=== PATIENT | female | born 1955 | race Caucasian/White ===

== ENCOUNTER → 2019-08-05 07:13 | Outpatient (CLI) | payer MEDICARE, OTHER, SELFPAY ==
[2019-08-05 07:49] LABS: Add Manual Diff / Slide Review NO; Basophils Absolute Auto 100 /uL (0-100); Basophils Percent Auto 0.8 % (0-2); Eosinophils Absolute Auto 100 /uL (0-450); Eosinophils Percent Auto 1.9 % (2-4); Hematocrit 40.2 % (36-46); Hemoglobin 13.8 g/dL (12.0-16.0); Lymphocytes Absolute Auto 2300 /uL (1100-4500); Lymphocytes Percent Auto 36.1 % (25-40); Mean Corpuscular HGB Conc 34.4 % (30-36); Mean Corpuscular Hemoglobin 30.7 PG (26-34); Mean Corpuscular Volume 89.3 fL (80-100); Monocytes Absolute Auto 600 /uL (0-900); Monocytes Percent Auto 9.1 % (3-14); Neutrophils Absolute Auto 3400 /uL (1500-7000); Neutrophils Percent Auto 52.1 % (50-75); Platelet Count 256 X10^3/uL (150-400); Red Cell Distribution Width 13.1 % (11.6-14.8); White Blood Cell Count 6.5 X10^3/uL (4.5-11.0)
[2019-08-05 08:13] LABS: Alanine Aminotransferase 19 IU/L (<35); Albumin 4.4 g/dL (3.5-5.0); Albumin Globulin Ratio 1.3 (1.0-2.8); Alkaline Phosphatase 92 U/L (38-126); Aspartate Aminotransferase 28 IU/L (14-36); Bilirubin Total 0.4 mg/dL (0.2-1.3); Blood Urea Nitrogen 15 mg/dL (7-17); Calcium 9.8 mg/dL (8.4-10.2); Carbon Dioxide 29 mmol/L (22-32); Chloride 102 mmol/L (98-107); Cholesterol 161 mg/dL (140-199); Estimated Glomerular Filt Rate > 60.0 mL/min (>60); Globulin 3.4 g/dL (1.7-4.1); Glucose 102 mg/dL (80-110); HDL Cholesterol 63 mg/dL (40-60); HEMOLYSIS < 15 (0-50); LDL Cholesterol Calculated 84 mg/dL (<100); Potassium 3.7 mmol/L (3.4-5.1); Sodium 137 mmol/L (137-145); Total Protein 7.8 g/dL (6.3-8.2); Triglycerides 72 mg/dL (35-150)
[2019-08-05 09:55] LABS: TSH w/ Reflex to FT4 0.19 uIU/mL (0.47-4.68)
[2019-08-05 10:28] LABS: Free T4, Direct Thyroxine 1.28 ng/dL (0.78-2.19)
== END ==
PROVIDERS: Family Provider Orthopaedic Surgery; PCP Internal Medicine; Referring Provider Internal Medicine; Visit Provider Internal Medicine
DX: Z13.1 Encounter for screening for diabetes mellitus (principal); Z13.220 Encounter for screening for lipoid disorders; Z13.6 Encounter for screening for cardiovascular disorders; B18.2 Chronic viral hepatitis C; I10 Essential (primary) hypertension
CPT/HCPCS: 36415; 80053; 80061; 84439; 84443; 85025

== ENCOUNTER → 2020-10-18 09:30 | Outpatient (CLI) | payer MEDICARE, OTHER, SELFPAY ==
[2020-10-18 10:13] LABS: COVID19 -Nasal RAPID Negative (Negative)
== END ==
PROVIDERS: Family Provider Orthopaedic Surgery; PCP Internal Medicine; Visit Provider Surgery
DX: Z01.812 Encounter for preprocedural laboratory examination (principal); Z20.822 Contact with and (suspected) exposure to COVID-19
CPT/HCPCS: 87635; C9803

== ENCOUNTER 2020-10-19 09:44 | Day surgery (SDC) | payer MEDICARE, OTHER, SELFPAY ==
--- NOTE | 2020-10-19 | PATH_ITS ---
[facility] Accession Number: [id number] . 01 Material submitted: . rectum - RECTAL POLYPS 15 CM . 01 Clinical history: . SCREENING COLONOSCOPY . 02 Diagnosis: Rectal Polyps at 15 cm, Biopsies: Fragments of tubular adenoma. MRV 10/25/2020 0939 Local . 02 Electronically signed: . Tone Alonso MD, PhD, Pathologist NPI- [id number] . 01 Gross description: . The specimen is received in formalin labeled rectal polyp and consists of three duque-pink fragments of soft tissue, measuring 0.8 x 0.6 x 0.3 cm in aggregate. The specimen is entirely submitted in cassette A1. ([id number]) /[facility] 10/20/2020 1649 Local . 02 Pathologist provided ICD-10: D12.8 . 02 CPT . 432833 Performed at: 01 [facility] [address] [facility], [place], [place] [id number] MD Micah Jameson MD Phone: [phone] Performed at: 02 [facility] [address] [place], [place] [id number] MD Shantell Cade MD Phone: [phone]
[2020-10-19] MEDS: SODIUM CHLORIDE 0.9% 1,000 ML 200 ML IV (10:05)
[2020-10-19 10:06] VITALS: BP 167/92; PULSE 67; RESP 14; TEMP 36.8; O2SAT 96; BMI 23.3
--- NOTE | 2020-10-19 10:57 | PM.HP.1 ---
History of Present Illness History of Present Illness Date Patient Seen: 10/19/20 Time Patient Seen: 10:57 Chief complaint: SCREENING COLONOSCOPY Narrative: This is a 65-year-old woman who has never had a screening colonoscopy. She was recently told by her primary care doctor that she should have 1. She denies any melena, hematochezia, unexplained abdominal pain, unexplained weight loss, family history of colon cancer colon polyps that she is aware of. ROS Thirteen system review is otherwise negative other than as mentioned below and in HPI. PE: GENERAL: Well groomed and cooperative. Appears stated age. Answers questions promptly and appropriately. Vital signs noted. HENT: Normocephalic, atraumatic. Hearing intact. EYES: Conjunctiva pink, sclera white, no periorbital swelling. CARDIOVASCULAR: Regular rate. No pedal edema. RESPIRATORY: Non-tachypneic, breathing comfortably on room air. GASTROINTESTINAL: Abdomen soft and non-distended GENITALURINARY: No flank tenderness. MUSCULOSKELETAL: Equal tone and mass bilaterally. SKIN: Warm, dry, soft, appropriate color for ethnicity. No other lesions, rashes, or wounds. NEURO: Alert and Oriented X 3. No gross sensory deficits, or cognitive issues. PSYCH: Appropriate affect and mood. Patient History Medical History Adrenal nodule Alcoholism Anxiety state, unspecified (11/18/02) Cervicalgia (08/08/04) Degeneration of intervertebral disc, site unspecified (01/06/03) Depression (11/18/02) Fibromyalgia (07/27/04) Hepatitis C, chronic (02/23/03) Hypertension Lumbosacral spondylosis (02/05/02) Menopause present (02/06/15) Spondylosis of unspecified site without mention of myelopathy (03/08/02) Surgical History History of breast augmentation (~1983) History of foot surgery History of foot surgery History of spinal fusion (1999) History of third molar tooth extraction Status post laminectomy Status post laparoscopic supracervical hysterectomy Status post wrist surgery Family & Social History Family History Father Brain cancer Grandfather Internal bleeding Grandmother Stroke Mother COPD (chronic obstructive pulmonary disease) Grandfather Heart attack Grandmother No problems noted. Social History: household members spouse Tobacco & Substance use: Smoking Status Former smoker alcohol intake former Substance Use Type does not use Meds Home Medications and Allergies Home Medications Medication Instructions Recorded Confirmed Type Suboxone 12 mg PO DAILY 07/26/19 10/19/20 History amlodipine 2.5 mg-benazepril 10 mg 1 cap PO DAILY #90 cap 06/05/20 10/19/20 Rx capsule Allergies Allergy/AdvReac Type Severity Reaction Status Date / Time ciprofloxacin [CIPROFLOXACIN] Allergy Unknown Verified 10/06/20 14:15 Penicillins [PENICILLINS] Allergy Unknown Verified 10/06/20 14:15 Exam Vital Signs (past 8 hours): - 10/19/20 10:06 Temperature 98.2 F Pulse Rate 67 Respiratory Rate 14 Blood Pressure 167/92 H Pulse Oximetry 96 Oxygen Delivery Method Room Air Assessment & Plan Assessment and plan (1) At average risk for colon cancer: Status: Acute Assessment & Plan narrative: Risks and benefits of screening colonoscopy and possible polypectomy were discussed with the patient including risk of bleeding, perforation, need for additional procedures, risks of anesthesia. The patient desires to proceed with the colonoscopy procedure. COVID-19 COVID-19 status: Negative Result date/Date tested (Pos, Neg/Pending): 10/18/20 Time Spent With Patient Time with patient: 15-24 minutes Quality VTE Deep Vein Thrombosis/Pulmonary Embolism Present on Admission: No
--- NOTE | 2020-10-19 11:01 | P.OP.ENDO_ITS ---
Operative Date/Time/Diagnoses Date of procedure: 10/19/20 Time of procedure: 11:01 Pre-op diagnosis: Average risk colon cancer, never had a screening colonoscopy Post-op diagnosis: other (Two rectal polyps at 15 cm, moderate diverticulosis) Procedure & Clinicians Study performed: Colonoscopy Procedural sedation performed by the endoscopist Polypectomy x1 with Jumbo forceps Polypectomy x1 with hot snare Same procedure as scheduled: Yes Indications: Average risk for colon cancer, never has screening colonoscopy Surgeon: Tyra Joe Procedure Notes SCOAP/Timeout: Performed Procedure in detail: The patient was brought to the room and placed in left lateral decubitus position with all bony prominences padded. A time-out was performed and then the patient was given procedural sedation starting with 6 mg of Versed and 100 mcg of fentanyl. Vitals were monitored throughout the procedure and remained stable. Once adequately sedated, the procedure was begun. A rectal exam was performed revealing no abnormalities. The colonoscope was then introduced to the rectum and advanced to the cecum in the usual fashion. The cecum was identified by the appendiceal orifice, the mucosal tri- fold, and the ileocecal valve. The scope was then retracted while rotating side to side and examining each mucosal fold. Two polyps were seen in the rectum at 15 cm from the anal verge. One was removed with Jumbo forceps, and the other was removed with hot snare. Moderate diverticulosis was seen throughout the descending and sigmoid colon. No evidence of active diverticulitis. At the conclusion of the procedure retroflexion was performed and small grade 1-2 internal hemorrhoids without stigmata of bleeding were seen. The scope was then withdrawn from the rectum the procedure was concluded. The patient tolerated the procedure well and was transferred to the PACU in stable condition. Total of 12 mg of Versed and 250 micro g of fentanyl were given for the entire procedure Scope withdrawal time: 12 Sedation minutes: 30 Findings: diverticulosis and polyp Specimen(s): other (Two rectal polyps) Complications: none Impression: 2 adenomatous/precancerous appearing rectal polyps Post-procedure Recommendations: Colonscopy in 5 years Follow up: as needed Disposition: PACU
[2020-10-19] MEDS: fentaNYL 250 MCG/5 ML INJ IV (11:16)
[2020-10-19] MEDS: MIDAZOLAM 5 MG/5 ML VIAL IV (11:16)
[2020-10-19 11:37] VITALS: BP 108/61; PULSE 67; RESP 11; TEMP 36.1; O2SAT 98
[2020-10-19 11:41] VITALS: BP 112/62; PULSE 63; RESP 12; O2SAT 97
[2020-10-19 11:46] VITALS: BP 112/60; PULSE 64; RESP 12; TEMP 36.4; O2SAT 96
[2020-10-19 12:07] VITALS: BP 105/63; PULSE 58; RESP 12; TEMP 36.7; O2SAT 95
== END 2020-10-19 12:14 | disposition home or self-care (01) ==
PROVIDERS: Family Provider Orthopaedic Surgery; PCP Internal Medicine; Referring Provider Surgery; Visit Provider Surgery
PROC: 0DJD8ZZ Inspection of Lower Intestinal Tract, Via Natural or Artificial Opening Endoscopic (ICD-10-PCS; CPT 45378; principal; 2020-10-19 10:45)
DX: Z12.11 Encounter for screening for malignant neoplasm of colon (principal); K57.30 Diverticulosis of large intestine without perforation or abscess without bleeding; K64.0 First degree hemorrhoids; D12.8 Benign neoplasm of rectum
CPT/HCPCS: 45385; 45380; 99152; 99153; J2250; J3010

== ENCOUNTER → 2021-01-19 08:37 | Outpatient (CLI) | payer MEDICARE, OTHER, SELFPAY ==
[2021-01-19 09:05] LABS: Add Manual Diff / Slide Review NO; Basophils Absolute Auto 0 /uL (0-100); Eosinophils Absolute Auto 200 /uL (0-450); Eosinophils Percent Auto 4.2 % (2-4); Hematocrit 39.2 % (36-46); Hemoglobin 13.2 g/dL (12.0-16.0); Lymphocytes Absolute Auto 1600 /uL (1100-4500); Lymphocytes Percent Auto 41.3 % (25-40); Mean Corpuscular HGB Conc 33.5 % (30-36); Mean Corpuscular Hemoglobin 30.5 PG (26-34); Monocytes Absolute Auto 400 /uL (0-900); Monocytes Percent Auto 10.3 % (3-14); Neutrophils Absolute Auto 1700 /uL (1500-7000); Neutrophils Percent Auto 43.2 % (50-75); Platelet Count 190 X10^3/uL (150-400); Red Blood Cell Count 4.31 X10^6/uL (4.0-5.2); Red Cell Distribution Width 12.8 % (11.6-14.8)
[2021-01-19 09:20] LABS: Alanine Aminotransferase 17 IU/L (<35); Albumin 4.3 g/dL (3.5-5.0); Albumin Globulin Ratio 1.4 (1.0-2.8); Alkaline Phosphatase 66 U/L (38-126); Aspartate Aminotransferase 33 IU/L (14-36); BUN Creatinine Ratio 14.1 (6-22); Bilirubin Total 0.4 mg/dL (0.2-1.3); Blood Urea Nitrogen 12 mg/dL (7-17); Calcium 9.5 mg/dL (8.4-10.2); Carbon Dioxide 31 mmol/L (22-32); Chloride 102 mmol/L (98-107); Cholesterol 188 mg/dL (140-199); Estimated Glomerular Filt Rate > 60.0 mL/min (>60); Glucose 96 mg/dL (80-110); HDL Cholesterol 89 mg/dL (40-60); HEMOLYSIS 16 (0-50); LDL Cholesterol Calculated 83 mg/dL (<100); Potassium 3.6 mmol/L (3.4-5.1); Sodium 138 mmol/L (137-145); Total Protein 7.3 g/dL (6.3-8.2); Triglycerides 81 mg/dL (35-150)
[2021-01-19 09:50] LABS: TSH w/ Reflex to FT4 0.12 uIU/mL (0.47-4.68)
[2021-01-19 10:15] LABS: Free T4, Direct Thyroxine 1.14 ng/dL (0.78-2.19)
== END ==
PROVIDERS: Family Provider Orthopaedic Surgery; PCP Internal Medicine; Referring Provider Internal Medicine; Visit Provider Internal Medicine
DX: I10 Essential (primary) hypertension (principal); E27.9 Disorder of adrenal gland, unspecified; B18.2 Chronic viral hepatitis C; Z78.0 Asymptomatic menopausal state
CPT/HCPCS: 36415; 80053; 80061; 84439; 84443; 85025

== ENCOUNTER → 2021-04-18 14:43 | Outpatient (CLI) | payer MEDICARE, OTHER, SELFPAY | PROVIDERS: Family Provider Orthopaedic Surgery; PCP Internal Medicine; Referring Provider Podiatrist; Visit Provider Podiatrist | DX: Z01.818 Encounter for other preprocedural examination (principal) | CPT/HCPCS: 93005 ==

== ENCOUNTER → 2021-04-23 14:49 | Outpatient (CLI) | payer MEDICARE, OTHER, SELFPAY ==
[2021-04-23 15:34] LABS: Add Manual Diff / Slide Review NO; Basophils Absolute Auto 100 /uL (0-100); Basophils Percent Auto 0.9 % (0-2); Eosinophils Absolute Auto 200 /uL (0-450); Eosinophils Percent Auto 3.5 % (2-4); Hematocrit 41.8 % (36-46); Hemoglobin 14.4 g/dL (12.0-16.0); Lymphocytes Absolute Auto 2200 /uL (1100-4500); Lymphocytes Percent Auto 33.7 % (25-40); Mean Corpuscular HGB Conc 34.4 % (30-36); Mean Corpuscular Hemoglobin 31.4 PG (26-34); Mean Corpuscular Volume 91.4 fL (80-100); Monocytes Absolute Auto 500 /uL (0-900); Monocytes Percent Auto 7.6 % (3-14); Neutrophils Absolute Auto 3500 /uL (1500-7000); Neutrophils Percent Auto 54.3 % (50-75); Platelet Count 237 X10^3/uL (150-400); Red Blood Cell Count 4.58 X10^6/uL (4.0-5.2); Red Cell Distribution Width 12.2 % (11.6-14.8); White Blood Cell Count 6.4 X10^3/uL (4.5-11.0)
[2021-04-23 15:51] LABS: Alanine Aminotransferase 23 IU/L (<35); Albumin 4.7 g/dL (3.5-5.0); Albumin Globulin Ratio 1.5 (1.0-2.8); Alkaline Phosphatase 67 U/L (38-126); Aspartate Aminotransferase 39 IU/L (14-36); BUN Creatinine Ratio 10.2 (6-22); Bilirubin Total 0.5 mg/dL (0.2-1.3); Blood Urea Nitrogen 9 mg/dL (7-17); Calcium 10.5 mg/dL (8.4-10.2); Carbon Dioxide 30 mmol/L (22-32); Chloride 101 mmol/L (98-107); Estimated Glomerular Filt Rate > 60.0 mL/min (>60); Globulin 3.1 g/dL (1.7-4.1); Glucose 100 mg/dL (80-110); HEMOLYSIS < 15 (0-50); Potassium 4.9 mmol/L (3.4-5.1); Sodium 139 mmol/L (137-145); Total Protein 7.8 g/dL (6.3-8.2)
== END ==
PROVIDERS: Family Provider Orthopaedic Surgery; PCP Internal Medicine; Referring Provider Podiatrist; Visit Provider Podiatrist
DX: Z01.812 Encounter for preprocedural laboratory examination (principal)
CPT/HCPCS: 36415; 80053; 85025

== ENCOUNTER → 2021-05-09 09:56 | Outpatient (CLI) | payer MEDICARE, OTHER, SELFPAY ==
[2021-05-09 11:32] LABS: COVID19 -Nasal RAPID Negative (Negative)
== END ==
PROVIDERS: Family Provider Orthopaedic Surgery; PCP Internal Medicine; Visit Provider Physician Assistant
DX: Z20.822 Contact with and (suspected) exposure to COVID-19 (principal)
CPT/HCPCS: 87635; C9803

== ENCOUNTER 2021-05-10 08:53 | Day surgery (SDC) | payer MEDICARE, OTHER, SELFPAY ==
[2021-05-08 14:49] VITALS: BMI 25.0
[2021-05-10] VITALS (7 sets, daily range): BP systolic 126–187; BP diastolic 70–102; PULSE 66–77; RESP 8–17; TEMP 36.5–37.4; O2SAT 92–98; BMI 25.0
[2021-05-10] MEDS: ACETAMINOPHEN 325 MG TABLET 650 MG PO (09:25)
[2021-05-10] MEDS: GABAPENTIN 300 MG CAPSULE PO (09:25)
[2021-05-10] MEDS: LACTATED RINGERS 1,000 ML 100 ML IV ×2 (09:26→11:42)
--- NOTE | 2021-05-10 09:53 | PM.PREOP ---
Pre-operative Note COVID-19 COVID-19 status: Negative Result date/Date tested (Pos, Neg/Pending): 05/09/21 Interval Note History & Physical reviewed/Exam performed by Physician: Yes Changes to H&P: No
--- NOTE | 2021-05-10 09:54 | P.OP_ITS ---
Operative Date/Time/Diagnoses Date of procedure: 05/10/21 Time of procedure: 09:56 Pre-op diagnosis: Right second hammertoe Post-op diagnosis: same Procedure & Clinicians Procedure: Right second proximal and distal interphalangeal joint fusion, second toe flexor tendon transfeer, second metatarsal osteotomy Same procedure as scheduled: Yes Indications: This 65-year-old female with painful 2nd hammertoe on the right foot. Conservative measures have failed to alleviate her pain and she wished to have surgical intervention at this time. We spoke the risks potential complications as well as expected outcomes. Consent was signed and no contraindication to the procedure at this time. Of note, we did discuss her alteration in pain shon malave last night before close of business and confirmed once again this morning that she is comfortable in trying tramadol. 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 Surgeon: Sarah Guerrero Click Yes if Unassisted: Yes Anesthesia Type: General Operative Notes Closure Type: primary Specimen(s): none sent Prosthetic devices, grafts, tissues, transplants, or devices: [place] 2.0 cannulated screw, 0.035 k-wire. Estimated Blood Loss (mL): 20 Blood products transfused: none Tourniquet time (min): 90 Procedure in detail: The patient was brought to the operating room and placed on the operating table in the supine position. Tourniquet was placed about the right ankle, she was well padded, appropriately aligned. After induction of general anesthesia the foot and ankle were prepped and draped in the usual aseptic manner. The tourniquet was inflated. Attention was directed to the 2nd metatarsophalangeal joint where an incision was made over the dorsal 2nd metatarsophalangeal joint extending to the distal interphalangeal joint The incision was deepened through subcutaneous tissues being careful to identify and retract all vital neural and vascular structures. All bleeders were cauterized and ligated as necessary. The extensor was transected at the dorsal proximal interphalangeal joint, reflected proximally and distally and the joint was mobilized. A saw was used to resect the head of the proximal phalanx in the base of the intermediate phalanx. The same procedure was performed to the distal interphalangeal joint. The for 2nd metatarsophalangeal joint capsule was showing tension and the extensor tendon was lengthened dorsally and the dorsal medial and lateral portion of the capsule at the metatarsophalangeal joint was released, allowing for relaxation of the contracture. The capsule was entered the metatarsal head and neck were exposed and using the aid of C-arm, a saw was used to create an osteotomy starting at the most dorsal aspect of the head of the metatarsal angling proximal plantar. The head was then pushed back proximally to a point where there was more of an equal parabola of length. This was temporarily fixated with a guidewire and then using standard AO technique, a 2-0 screw was placed across this. Due to t he implant in the 1st metatarsal head there was some difficulty in viewing the screw and once we were able to see this, there was some concern that it was not deep enough and the screw was removed and a 2nd screw that was a little longer was placed through this osteotomy. We were able to see this a lot better and did not feel any area where the threads were too long a and there was very good compression and correction across the osteotomy. Guidewire was removed this was checked under C-arm and strength was good as well as compression. The distal aspect of the metatarsal neck overhang dorsally was reduced and neatly smoothed. After irrigation with normal saline, the flexor was seen through the gap at the plantar space of the former proximal interphalangeal joint. This was traced distally and segmented such that the lateral and medial portions of it were brought dorsally to allow for securing at the proximal phalanx. Using the aid of a C-arm, a 0.035 K-wire was placed in the base of the intermediate phalanx driven out distally of the 2nd toe and then retrograded proximally across 2nd proximal phalanx and into the metatarsal. This was confirmed on C-arm and alignment was good. Remaining K-wire distally after bending and securing the K- wire at the tip was removed and safely capped. Good compression was noted across the proximal and distal interphalangeal joints. Tycron was used to repair the flexor tendon as it secured dorsally and also the extensor tendons dorsally. During the process there was a loss of a portion of the more proximal aspect of the 1 of the edges of the extensor tendon as it was quite thin and so during the more proximal extensor repair, other neighboring tissues were used to help secure that gap. The tourniquet was deflated, a prompt hyperemic response was seen to the foot. Deep closure was performed using 3-0 and 4-0 Vicryl and nylon was used to close the skin. Triple antibiotic ointment was placed on the tip where the K-wire exited and a sterile lightly compressive dressing was placed on the foot. She was transferred to the PACU with vital signs stable and vascular status Post-operative Condition: stable Disposition: PACU Plan for aftercare: Following a period of postoperative monitoring, the patient be discharged to home on written and oral postoperative instructions including keeping the dressing dry and intact, no ambulation on the surgical foot, icing and elevating the foot when seated home. DVT prevention techniques have been reviewed. For the 1st postoperative visit the dressing will be changed and close to the 4th postoperative week we will have x-rays and likely wire removal.
[2021-05-10] MEDS: CEFAZOLIN 2 GM/20 ML SYRINGE IV (10:17)
--- NOTE | 2021-05-10 10:34 | SUR.OPER ---
Supine on padded OR bed, head on pillow, arms secured on padded arm boards at <90 degrees abduction, legs uncrossed, safety belt at thigh, tape over blanket over lower left leg, right leg draped free with gel bump under right thigh.
[2021-05-10] MEDS: BUPIVACAINE 0.5% (PF) VIAL 30 ML INJ (10:42)
== END 2021-05-10 13:30 | disposition home or self-care (01) ==
PROVIDERS: Family Provider Orthopaedic Surgery; PCP Internal Medicine; Referring Provider Podiatrist; Visit Provider Podiatrist
PROC: (CPT 28285; principal; 2021-05-10 10:15)
PROC: (CPT 27691; 2021-05-10 10:15)
DX: M20.41 Other hammer toe(s) (acquired), right foot (principal); M79.671 Pain in right foot; I10 Essential (primary) hypertension; I45.10 Unspecified right bundle-branch block
CPT/HCPCS: 28308; 28285; J0690; J1100; J1885; J2405; J2704

== ENCOUNTER 2021-08-27 05:48 | Observation (INO) | payer MEDICARE, OTHER, SELFPAY ==
[2021-08-27] VITALS (23 sets, daily range): BP systolic 158–192; BP diastolic 84–116; PULSE 89–135; RESP 10–26; TEMP 35.9–36.9; O2SAT 83–98; BMI 25.0
--- NOTE | 2021-08-27 06:11 | ED_ITS ---
HPI - SOB/Dyspnea <DO New Rodriguez Last Filed: 08/29/21 07:05> General Chief Complaint: Shortness of Breath/Dyspnea Stated Complaint: cough, sore throat, sob Time Seen by Provider: 08/27/21 06:10 Source: patient Mode of arrival: Wheelchair Limitations: no limitations History of Present Illness HPI Narrative: patient is a 66-year-old female of alcoholism, anxiety presenting with 1 week of shortness of breath. She states that she started not feeling great 1 week ago however last night started getting progressively worse. She was unable to lie flat she has needed multiple pillows. She has shortness of breath with exertion. She denies any chest pain. She has not had fever but does not feel good. She denies any productive cough. No nausea or vomiting. No extremity swelling. Related Data Home Medications Medication Instructions Recorded Confirmed Suboxone 12 mg PO DAILY 07/26/19 06/04/21 Previous Rx's Medication Instructions Recorded amlodipine 2.5 mg-benazepril 10 mg 1 cap PO DAILY #90 cap 07/23/21 capsule azithromycin 250 mg tablet 250 mg PO DAILY 5 Days #5 tab 08/28/21 Allergies Allergy/AdvReac Type Severity Reaction Status Date / Time ciprofloxacin [CIPROFLOXACIN] Allergy Unknown Verified 06/04/21 15:47 Penicillins [PENICILLINS] Allergy Unknown Verified 06/04/21 15:47 Review of Systems <DO New Rodriguez Last Filed: 08/29/21 07:05> Review of Systems Narrative: GENERAL: Denies chills, fatigue, malaise, fever, sweats, travel HEENT: Denies sinus pain, ear pain, sore throat, difficulty swallowing, neck pain RESPIRATORY: See HPI CARDIOVASCULAR: Denies chest pain, palpitations, orthopnea, edema GASTROINTESTINAL: Denies nausea, vomiting, abdominal pain, diarrhea, constipation, melena. : Denies dysuria, frequency, incontinence, hematuria, urinary retention, flank pain. MUSCULOSKELETAL: Denies weakness, joint pain, or bony pain SKIN: No rash, no erythema, no pruritus NEUROLOGIC: Denies weakness, dizziness, headache, numbness, change in speech, confusion PSYCHIATRIC: No concerning psychosocial issues. 12 point review of systems is negative except for those stated above and HPI Patient History <DO New Rodriguez Last Filed: 08/29/21 07:05> Medical History Adrenal nodule Alcoholism Anxiety state, unspecified (11/18/02) Cervicalgia (08/08/04) Degeneration of intervertebral disc, site unspecified (01/06/03) Depression (11/18/02) Fibromyalgia (07/27/04) Hepatitis C, chronic (02/23/03) Hypertension Lumbosacral spondylosis (02/05/02) Menopause present (02/06/15) RBBB (right bundle branch block) Spondylosis of unspecified site without mention of myelopathy (03/08/02) Surgical History History of breast augmentation (~1983) History of foot surgery History of foot surgery History of spinal fusion (1999) History of third molar tooth extraction Status post laminectomy Status post laparoscopic supracervical hysterectomy Status post wrist surgery Family History Father Brain cancer Grandfather Internal bleeding Grandmother Stroke Mother COPD (chronic obstructive pulmonary disease) Grandfather Heart attack Grandmother No problems noted. Social History household members: spouse Smoking Status: Former smoker alcohol intake: former Smoking Status: Former smoker alcohol intake frequency: 0-2 drinks per day Substance Use Type: does not use Exam <Kirstin Castañeda DO - Last Filed: 08/29/21 07:05> Initial Vital Signs Initial Vital Signs: Vital Signs Pulse Rate 119 H 08/27/21 05:58 Respiratory Rate 18 08/27/21 05:58 Blood Pressure 192/116 H 08/27/21 05:58 Pulse Oximetry 97 08/27/21 05:58 GENERAL Alert 66-year-old female, appears to not feel well HEENT: Head atraumatic,EOMI, pupils reactive, face symmetric, [moist] mucous membranes CARDIOVASCULAR: Regular rate and rhythm without murmurs, rubs or gallops. RESPIRATORY: mild expiratory wheezing speaks in full sentences ABDOMEN: Soft, nontender. Normoactive bowel sounds all 4 quadrants. No guarding or rebound. EXTREMITIES: Normal range of motion, no clubbing or edema. Neurovascularly intact NEUROLOGICAL: Alert and oriented x4.Normal gait and speech. SKIN: Warm, dry, no laceration, no petechiae, no rashes or lesions. <Meseret Lovell, DO - Last Filed: 08/27/21 18:32> Initial Vital Signs Initial Vital Signs: Vital Signs Pulse Rate 119 H 08/27/21 05:58 Respiratory Rate 18 08/27/21 05:58 Blood Pressure 192/116 H 08/27/21 05:58 Pulse Oximetry 97 08/27/21 05:58 Course <Kirstin Castañeda, DO - Last Filed: 08/29/21 07:05> Orders Ordered: Discontinued Medications Acetaminophen (Acetaminophen 325 Mg Tablet) 650 mg PO Q6HR PRN PRN Reason: Pain, Mild (1-3) Last Admin: 08/28/21 07:25 Dose: 650 mg Documented by: Admin: 08/28/21 01:50 Dose: 650 mg Documented by: Admin: 08/27/21 20:20 Dose: 650 mg Documented by: Admin: 08/27/21 12:10 Dose: 650 mg Documented by: JAIME Albuterol (Albuterol 2.5 Mg/3 Ml Neb (Adult)) 2.5 mg INH [id number] PRN PRN Reason: Shortness Of Breath Albuterol/Ipratropium (Albuterol/Ipratropium 3 Ml Ampul) 3 ml INH NOW ONE Stop: 08/27/21 06:18 Last Admin: 08/27/21 06:38 Dose: 3 ml Documented by: ELVIEIM Amlodipine Besylate (Amlodipine 5 Mg Tablet) 2.5 mg PO DAILY [facility] Last Admin: 08/28/21 08:19 Dose: 2.5 mg Documented by: CMCFARL Enoxaparin Sodium (Enoxaparin 40 Mg/0.4 Ml Syringe) 40 mg SUBCUT DAILY [facility] Last Admin: 08/28/21 08:16 Dose: 40 mg Documented by: CMCFARL Sodium Chloride (Normal Saline 0.9%) 1,000 mls @ 1,000 mls/hr IV BOLUS ONE Stop: 08/27/21 08:18 Last Infusion: 08/27/21 08:37 Dose: 0 mls/hr Documented by: Admin: 08/27/21 07:25 Dose: 1,000 mls/hr Documented by: RUDDY Ceftriaxone Sodium 2,000 mg/ (Sodium Chloride) 100 mls @ 200 mls/hr IV NOW ONE Stop: 08/27/21 08:49 Last Infusion: 08/27/21 09:57 Dose: 0 mls/hr Documented by: Admin: 08/27/21 09:13 Dose: 200 mls/hr Documented by: RUDDY Dextrose/Sodium Chloride (Dextrose 5%-0.9% Ns) 1,000 mls @ 60 mls/hr IV CONT [facility] Last Admin: 08/27/21 12:10 Dose: 60 mls/hr Documented by: JAIME Ceftriaxone Sodium 1,000 mg/ (Sodium Chloride) 100 mls @ 200 mls/hr IV Q24H [facility] Last Admin: 08/28/21 08:15 Dose: 200 mls/hr Documented by: LUX Azithromycin 500 mg/ Dextrose 250 mls @ 250 mls/hr IV Q24H [facility] Last Infusion: 08/28/21 07:26 Dose: 0 mls/hr Documented by: Admin: 08/27/21 12:10 Dose: 250 mls/hr Documented by: JAIME Lisinopril (Lisinopril 10 Mg Tablet) 10 mg PO DAILY [facility] Last Admin: 08/28/21 08:15 Dose: 10 mg Documented by: LUX Methylprednisolone (Methylprednisolone 125 Mg/2 Ml Vial) 125 mg IV NOW ONE Stop: 08/27/21 07:20 Last Admin: 08/27/21 07:25 Dose: 125 mg Documented by: RUDDY Naloxone HCl (Naloxone 0.4 Mg/Ml Vial) 0.2 mg IV Q2MIN PRN PRN Reason: Opiate Reversal Stored In Pharmacy 1 each SL PRN PRN PRN Reason: PROTOCOL Ondansetron HCl (Ondansetron 4 Mg/2 Ml Inj) 4 mg IV NOW ONE Stop: 08/27/21 07:20 Last Admin: 08/27/21 07:25 Dose: 4 mg Documented by: RUDDY Ondansetron HCl (Ondansetron 4 Mg/2 Ml Inj) 4 mg IV Q8HR PRN PRN Reason: Nausea And Vomiting Last Admin: 08/27/21 18:11 Dose: 4 mg Documented by: ROSAS Vital Signs Vital signs: Vital Signs - 8 hr 08/27/21 05:58 08/27/21 05:59 08/27/21 06:00 Temperature 98.2 F Pulse Rate 119 H 130 H 129 H Respiratory Rate 18 24 24 Blood Pressure 192/116 H 183/109 H 183/109 H Pulse Oximetry 97 98 96 08/27/21 06:30 08/27/21 06:38 08/27/21 07:00 Temperature Pulse Rate 103 H 106 H Respiratory Rate 16 13 Blood Pressure Pulse Oximetry 93 98 94 08/27/21 07:30 08/27/21 07:36 08/27/21 07:57 Temperature Pulse Rate 127 H 102 H Respiratory Rate 21 16 Blood Pressure 171/94 H Pulse Oximetry 96 96 98 08/27/21 08:00 08/27/21 08:22 08/27/21 08:30 Temperature Pulse Rate 91 H 97 H 95 H Respiratory Rate 10 L 14 10 L Blood Pressure 183/91 H 168/84 H Pulse Oximetry 95 98 94 08/27/21 09:00 08/27/21 09:30 08/27/21 09:32 Temperature Pulse Rate 94 H 126 H Respiratory Rate 17 26 H Blood Pressure 161/85 H Pulse Oximetry 94 83 L 93 <Meseret Lovell DO - Last Filed: 08/27/21 18:32> Orders Ordered: Discontinued Medications Acetaminophen (Acetaminophen 325 Mg Tablet) 650 mg PO Q6HR PRN PRN Reason: Pain, Mild (1-3) Last Admin: 08/28/21 07:25 Dose: 650 mg Documented by: Admin: 08/28/21 01:50 Dose: 650 mg Documented by: Admin: 08/27/21 20:20 Dose: 650 mg Documented by: Admin: 08/27/21 12:10 Dose: 650 mg Documented by: JAIME Albuterol (Albuterol 2.5 Mg/3 Ml Neb (Adult)) 2.5 mg INH [id number] PRN PRN Reason: Shortness Of Breath Albuterol/Ipratropium (Albuterol/Ipratropium 3 Ml Ampul) 3 ml INH NOW ONE Stop: 08/27/21 06:18 Last Admin: 08/27/21 06:38 Dose: 3 ml Documented by: MARYAN Amlodipine Besylate (Amlodipine 5 Mg Tablet) 2.5 mg PO DAILY [facility] Last Admin: 08/28/21 08:19 Dose: 2.5 mg Documented by: LUX Enoxaparin Sodium (Enoxaparin 40 Mg/0.4 Ml Syringe) 40 mg SUBCUT DAILY [facility] Last Admin: 08/28/21 08:16 Dose: 40 mg Documented by: LUX Sodium Chloride (Normal Saline 0.9%) 1,000 mls @ 1,000 mls/hr IV BOLUS ONE Stop: 08/27/21 08:18 Last Infusion: 08/27/21 08:37 Dose: 0 mls/hr Documented by: Admin: 08/27/21 07:25 Dose: 1,000 mls/hr Documented by: RUDDY Ceftriaxone Sodium 2,000 mg/ (Sodium Chloride) 100 mls @ 200 mls/hr IV NOW ONE Stop: 08/27/21 08:49 Last Infusion: 08/27/21 09:57 Dose: 0 mls/hr Documented by: Admin: 08/27/21 09:13 Dose: 200 mls/hr Documented by: RUDDY Dextrose/Sodium Chloride (Dextrose 5%-0.9% Ns) 1,000 mls @ 60 mls/hr IV CONT [facility] Last Admin: 08/27/21 12:10 Dose: 60 mls/hr Documented by: JAIME Ceftriaxone Sodium 1,000 mg/ (Sodium Chloride) 100 mls @ 200 mls/hr IV Q24H [facility] Last Admin: 08/28/21 08:15 Dose: 200 mls/hr Documented by: LUX Azithromycin 500 mg/ Dextrose 250 mls @ 250 mls/hr IV Q24H [facility] Last Infusion: 08/28/21 07:26 Dose: 0 mls/hr Documented by: Admin: 08/27/21 12:10 Dose: 250 mls/hr Documented by: JAIME Lisinopril (Lisinopril 10 Mg Tablet) 10 mg PO DAILY [facility] Last Admin: 08/28/21 08:15 Dose: 10 mg Documented by: LUX Methylprednisolone (Methylprednisolone 125 Mg/2 Ml Vial) 125 mg IV NOW ONE Stop: 08/27/21 07:20 Last Admin: 08/27/21 07:25 Dose: 125 mg Documented by: RUDDY Naloxone HCl (Naloxone 0.4 Mg/Ml Vial) 0.2 mg IV Q2MIN PRN PRN Reason: Opiate Reversal Stored In Pharmacy 1 each SL PRN PRN PRN Reason: PROTOCOL Ondansetron HCl (Ondansetron 4 Mg/2 Ml Inj) 4 mg IV NOW ONE Stop: 08/27/21 07:20 Last Admin: 08/27/21 07:25 Dose: 4 mg Documented by: RUDDY Ondansetron HCl (Ondansetron 4 Mg/2 Ml Inj) 4 mg IV Q8HR PRN PRN Reason: Nausea And Vomiting Last Admin: 08/27/21 18:11 Dose: 4 mg Documented by: ROSAS Reevaluation(s) Reevaluation #1: Patient seen and evaluated by myself. Patient had 3 episodes of dropping her oxygen 83% it would improve if she would cough or make increased effort but did recur. Patient's CT angio is negative for pulmonary emboli but does have bronchopneumonia. She has had 5 episodes of hypoxia which have been intermittent seem to improve with cough and clearing but continue to reoccur. Patient was given dose of IV antibiotics she is not wheezy on exam at this point so did not give additional neb treatments. Time: 08:34 Reevaluation #2: Discussed with patient would like to keep her for observation, IV antibiotics, 4+ COVID is pending but will discuss with her primary care patient is agreeable with this plan. Time: 09:51 Consultations Consultation #1: Dr. Ashraf accepts for observation. Patient has bronchopneumonia has had intermittent hypoxia but not persistent she responds oxygen does not required at all times but would likely benefit from observation, monitoring overnight, dose IV antibiotics and potentially could discharge home in the morning. We discussed that the for plaques COVID is pending but her additional rapid COVID is negative. Time: 09:51 Vital Signs Vital signs: Vital Signs - 8 hr 08/27/21 05:58 08/27/21 05:59 08/27/21 06:00 Temperature 98.2 F Pulse Rate 119 H 130 H 129 H Respiratory Rate 18 24 24 Blood Pressure 192/116 H 183/109 H 183/109 H Pulse Oximetry 97 98 96 08/27/21 06:30 08/27/21 06:38 08/27/21 07:00 Temperature Pulse Rate 103 H 106 H Respiratory Rate 16 13 Blood Pressure Pulse Oximetry 93 98 94 08/27/21 07:30 08/27/21 07:36 08/27/21 07:57 Temperature Pulse Rate 127 H 102 H Respiratory Rate 21 16 Blood Pressure 171/94 H Pulse Oximetry 96 96 98 08/27/21 08:00 08/27/21 08:22 08/27/21 08:30 Temperature Pulse Rate 91 H 97 H 95 H Respiratory Rate 10 L 14 10 L Blood Pressure 183/91 H 168/84 H Pulse Oximetry 95 98 94 08/27/21 09:00 08/27/21 09:30 08/27/21 09:32 Temperature Pulse Rate 94 H 126 H Respiratory Rate 17 26 H Blood Pressure 161/85 H Pulse Oximetry 94 83 L 93 MDM - SOB/Dyspnea <Kirstin Castañeda DO - Last Filed: 08/29/21 07:05> Lab Data Result diagrams: 08/27/21 06:00 08/27/21 06:00 Labs: Lab Results 08/27/21 08/27/21 08/27/21 Range/Units 05:55 06:00 06:00 WBC 5.2 (4.5-11.0) X10^3/uL RBC 5.19 (4.0-5.2) X10^6/uL Hgb 16.6 H (12.0-16.0) g/dL Hct 47.5 H (36-46) % MCV 91.5 (80-100) fL MCH 32.0 (26-34) PG MCHC 35.0 (30-36) % RDW 12.6 (11.6-14.8) % Plt Count 242 (150-400) X10^3/uL Neut % (Auto) 50.5 (50-75) % Lymph % (Auto) 29.3 (25-40) % Hettinger % (Auto) 15.1 H (3-14) % Eos % (Auto) 4.0 (2-4) % Baso % (Auto) 1.1 (0-2) % Neut # (Auto) 2600 (7482-6376) /uL Lymph # (Auto) 1500 (3657-0612) /uL Hettinger # (Auto) 800 (0-900) /uL Eos # (Auto) 200 (0-450) /uL Baso # (Auto) 100 (0-100) /uL Sodium (137-145) mmol/L Potassium (3.4-5.1) mmol/L Chloride (98-107) mmol/L Carbon Dioxide (22-32) mmol/L BUN (7-17) mg/dL Creatinine (0.52-1.04) mg/dL Estimated GFR (>60) mL/min BUN/Creatinine Ratio (6-22) Glucose (80-110) mg/dL Lactate (0.7-2.1) mmol/L Calcium (8.4-10.2) mg/dL Magnesium 1.4 L (1.6-2.3) mg/dL Total Bilirubin (0.2-1.3) mg/dL AST (14-36) IU/L ALT (<35) IU/L Alkaline Phosphatase (38-126) U/L Total Creatine Kinase 60 (30-135) U/L CK-MB (CK-2) TNP CK-MB (CK-2) Rel Index TNP Troponin I < 0.012 (0.01-0.034) ng/mL NT-Pro-B Natriuret Pep 183 H (<125) pg/mL Total Protein (6.3-8.2) g/dL Albumin (3.5-5.0) g/dL Globulin (1.7-4.1) g/dL Albumin/Globulin Ratio (1.0-2.8) Procalcitonin (<0.5) ng/mL SARS-CoV-2 (PCR) Negative (Negative) Influenza A (RT-PCR) (NEGATIVE) Influenza B (RT-PCR) (NEGATIVE) RSV (PCR) (Negative) 08/27/21 08/27/21 08/27/21 Range/Units 06:00 06:00 06:00 WBC (4.5-11.0) X10^3/uL RBC (4.0-5.2) X10^6/uL Hgb (12.0-16.0) g/dL Hct (36-46) % MCV (80-100) fL MCH (26-34) PG MCHC (30-36) % RDW (11.6-14.8) % Plt Count (150-400) X10^3/uL Neut % (Auto) (50-75) % Lymph % (Auto) (25-40) % Hettinger % (Auto) (3-14) % Eos % (Auto) (2-4) % Baso % (Auto) (0-2) % Neut # (Auto) (5176-6671) /uL Lymph # (Auto) (2198-5036) /uL Hettinger # (Auto) (0-900) /uL Eos # (Auto) (0-450) /uL Baso # (Auto) (0-100) /uL Sodium 136 L (137-145) mmol/L Potassium 3.5 (3.4-5.1) mmol/L Chloride 97 L (98-107) mmol/L Carbon Dioxide 23 (22-32) mmol/L BUN 8 (7-17) mg/dL Creatinine 0.75 (0.52-1.04) mg/dL Estimated GFR > 60.0 (>60) mL/min BUN/Creatinine Ratio 10.7 (6-22) Glucose 136 H (80-110) mg/dL Lactate 1.7 (0.7-2.1) mmol/L Calcium 9.5 (8.4-10.2) mg/dL Magnesium (1.6-2.3) mg/dL Total Bilirubin 0.8 (0.2-1.3) mg/dL AST 57 H (14-36) IU/L ALT 25 (<35) IU/L Alkaline Phosphatase 88 (38-126) U/L Total Creatine Kinase (30-135) U/L CK-MB (CK-2) CK-MB (CK-2) Rel Index Troponin I (0.01-0.034) ng/mL NT-Pro-B Natriuret Pep (<125) pg/mL Total Protein 8.9 H (6.3-8.2) g/dL Albumin 5.2 H (3.5-5.0) g/dL Globulin 3.7 (1.7-4.1) g/dL Albumin/Globulin Ratio 1.4 (1.0-2.8) Procalcitonin < 0.03 (<0.5) ng/mL SARS-CoV-2 (PCR) (Negative) Influenza A (RT-PCR) (NEGATIVE) Influenza B (RT-PCR) (NEGATIVE) RSV (PCR) (Negative) 08/27/21 Range/Units 09:28 WBC (4.5-11.0) X10^3/uL RBC (4.0-5.2) X10^6/uL Hgb (12.0-16.0) g/dL Hct (36-46) % MCV (80-100) fL MCH (26-34) PG MCHC (30-36) % RDW (11.6-14.8) % Plt Count (150-400) X10^3/uL Neut % (Auto) (50-75) % Lymph % (Auto) (25-40) % Hettinger % (Auto) (3-14) % Eos % (Auto) (2-4) % Baso % (Auto) (0-2) % Neut # (Auto) (8031-3489) /uL Lymph # (Auto) (7257-6639) /uL Hettinger # (Auto) (0-900) /uL Eos # (Auto) (0-450) /uL Baso # (Auto) (0-100) /uL Sodium (137-145) mmol/L Potassium (3.4-5.1) mmol/L Chloride (98-107) mmol/L Carbon Dioxide (22-32) mmol/L BUN (7-17) mg/dL Creatinine (0.52-1.04) mg/dL Estimated GFR (>60) mL/min BUN/Creatinine Ratio (6-22) Glucose (80-110) mg/dL Lactate (0.7-2.1) mmol/L Calcium (8.4-10.2) mg/dL Magnesium (1.6-2.3) mg/dL Total Bilirubin (0.2-1.3) mg/dL AST (14-36) IU/L ALT (<35) IU/L Alkaline Phosphatase (38-126) U/L Total Creatine Kinase (30-135) U/L CK-MB (CK-2) CK-MB (CK-2) Rel Index Troponin I (0.01-0.034) ng/mL NT-Pro-B Natriuret Pep (<125) pg/mL Total Protein (6.3-8.2) g/dL Albumin (3.5-5.0) g/dL Globulin (1.7-4.1) g/dL Albumin/Globulin Ratio (1.0-2.8) Procalcitonin (<0.5) ng/mL SARS-CoV-2 (PCR) Negative (Negative) Influenza A (RT-PCR) Flu a negative (NEGATIVE) Influenza B (RT-PCR) Flu b negative (NEGATIVE) RSV (PCR) Negative (Negative) MDM Narrative Medical decision making narrative: Patient is experiencing cough. She improved with albuterol. Patient signed out to Dr. Lovell for further medical management This is a 66-year-old female signed out to myself with complaint of shortness of breath. Patient came in with tachycardia, EKG shows right bundle branch block which appears stable to prior EKGs from 04/18/2021 and 07/08/2017. Patient's CBC show slight increase in hemoglobin, BNP is 183 with a cutoff of 125, negative troponin, and minor lab abnormalities with a positive procalcitonin. COVID swab was negative. Patient was reportedly wheezy on exam and seem to respond to DuoNeb, she had fluids, Zofran and Solu-Medrol in the department. Patient did have 3 episodes were her O2 sat dropped while lying flat she could cough were clear and seem to increase it but did appear to have an appropriate cleft. Because she had some persistent tachycardia initially which did respond to fluids CT angio was obtained and shows no pulmonary embolus but does show segmental and subsegmental bronchi lower lungs bilaterally with some patchy density changes consistent with bronchopneumonia. She has a hiatal hernia as well as a left adrenal add no myelolipoma. Patient has not required persistent oxygen. Reviewed her findings plan to give a dose of Rocephin in the department, ambulatory pulse oximetry if patient is able to maintain O2 sats DC home with oral antibiotics, prednisone and albuterol inhaler. Patient continued to have intermittent dips in her oxygen level to 83%, they are not persistent but they do occur so discussed with Dr. Ashraf from her primary care service who accepts for observation, IV antibiotics with a 4 plaques COVID pending. <Meseret Lovell, - Last Filed: 08/27/21 18:32> Lab Data Labs: Lab Results 08/27/21 08/27/21 08/27/21 Range/Units 05:55 06:00 06:00 WBC 5.2 (4.5-11.0) X10^3/uL RBC 5.19 (4.0-5.2) X10^6/uL Hgb 16.6 H (12.0-16.0) g/dL Hct 47.5 H (36-46) % MCV 91.5 (80-100) fL MCH 32.0 (26-34) PG MCHC 35.0 (30-36) % RDW 12.6 (11.6-14.8) % Plt Count 242 (150-400) X10^3/uL Neut % (Auto) 50.5 (50-75) % Lymph % (Auto) 29.3 (25-40) % Hettinger % (Auto) 15.1 H (3-14) % Eos % (Auto) 4.0 (2-4) % Baso % (Auto) 1.1 (0-2) % Neut # (Auto) 2600 (7617-5008) /uL Lymph # (Auto) 1500 (0562-7054) /uL Hettinger # (Auto) 800 (0-900) /uL Eos # (Auto) 200 (0-450) /uL Baso # (Auto) 100 (0-100) /uL Sodium (137-145) mmol/L Potassium (3.4-5.1) mmol/L Chloride (98-107) mmol/L Carbon Dioxide (22-32) mmol/L BUN (7-17) mg/dL Creatinine (0.52-1.04) mg/dL Estimated GFR (>60) mL/min BUN/Creatinine Ratio (6-22) Glucose (80-110) mg/dL Lactate (0.7-2.1) mmol/L Calcium (8.4-10.2) mg/dL Magnesium 1.4 L (1.6-2.3) mg/dL Total Bilirubin (0.2-1.3) mg/dL AST (14-36) IU/L ALT (<35) IU/L Alkaline Phosphatase (38-126) U/L Total Creatine Kinase 60 (30-135) U/L CK-MB (CK-2) TNP CK-MB (CK-2) Rel Index TNP Troponin I < 0.012 (0.01-0.034) ng/mL NT-Pro-B Natriuret Pep 183 H (<125) pg/mL Total Protein (6.3-8.2) g/dL Albumin (3.5-5.0) g/dL Globulin (1.7-4.1) g/dL Albumin/Globulin Ratio (1.0-2.8) Procalcitonin (<0.5) ng/mL SARS-CoV-2 (PCR) Negative (Negative) Influenza A (RT-PCR) (NEGATIVE) Influenza B (RT-PCR) (NEGATIVE) RSV (PCR) (Negative) 08/27/21 08/27/21 08/27/21 Range/Units 06:00 06:00 06:00 WBC (4.5-11.0) X10^3/uL RBC (4.0-5.2) X10^6/uL Hgb (12.0-16.0) g/dL Hct (36-46) % MCV (80-100) fL MCH (26-34) PG MCHC (30-36) % RDW (11.6-14.8) % Plt Count (150-400) X10^3/uL Neut % (Auto) (50-75) % Lymph % (Auto) (25-40) % Hettinger % (Auto) (3-14) % Eos % (Auto) (2-4) % Baso % (Auto) (0-2) % Neut # (Auto) (9501-6873) /uL Lymph # (Auto) (6911-4751) /uL Hettinger # (Auto) (0-900) /uL Eos # (Auto) (0-450) /uL Baso # (Auto) (0-100) /uL Sodium 136 L (137-145) mmol/L Potassium 3.5 (3.4-5.1) mmol/L Chloride 97 L (98-107) mmol/L Carbon Dioxide 23 (22-32) mmol/L BUN 8 (7-17) mg/dL Creatinine 0.75 (0.52-1.04) mg/dL Estimated GFR > 60.0 (>60) mL/min BUN/Creatinine Ratio 10.7 (6-22) Glucose 136 H (80-110) mg/dL Lactate 1.7 (0.7-2.1) mmol/L Calcium 9.5 (8.4-10.2) mg/dL Magnesium (1.6-2.3) mg/dL Total Bilirubin 0.8 (0.2-1.3) mg/dL AST 57 H (14-36) IU/L ALT 25 (<35) IU/L Alkaline Phosphatase 88 (38-126) U/L Total Creatine Kinase (30-135) U/L CK-MB (CK-2) CK-MB (CK-2) Rel Index Troponin I (0.01-0.034) ng/mL NT-Pro-B Natriuret Pep (<125) pg/mL Total Protein 8.9 H (6.3-8.2) g/dL Albumin 5.2 H (3.5-5.0) g/dL Globulin 3.7 (1.7-4.1) g/dL Albumin/Globulin Ratio 1.4 (1.0-2.8) Procalcitonin < 0.03 (<0.5) ng/mL SARS-CoV-2 (PCR) (Negative) Influenza A (RT-PCR) (NEGATIVE) Influenza B (RT-PCR) (NEGATIVE) RSV (PCR) (Negative) 08/27/21 Range/Units 09:28 WBC (4.5-11.0) X10^3/uL RBC (4.0-5.2) X10^6/uL Hgb (12.0-16.0) g/dL Hct (36-46) % MCV (80-100) fL MCH (26-34) PG MCHC (30-36) % RDW (11.6-14.8) % Plt Count (150-400) X10^3/uL Neut % (Auto) (50-75) % Lymph % (Auto) (25-40) % Hettinger % (Auto) (3-14) % Eos % (Auto) (2-4) % Baso % (Auto) (0-2) % Neut # (Auto) (6088-0380) /uL Lymph # (Auto) (1391-2265) /uL Hettinger # (Auto) (0-900) /uL Eos # (Auto) (0-450) /uL Baso # (Auto) (0-100) /uL Sodium (137-145) mmol/L Potassium (3.4-5.1) mmol/L Chloride (98-107) mmol/L Carbon Dioxide (22-32) mmol/L BUN (7-17) mg/dL Creatinine (0.52-1.04) mg/dL Estimated GFR (>60) mL/min BUN/Creatinine Ratio (6-22) Glucose (80-110) mg/dL Lactate (0.7-2.1) mmol/L Calcium (8.4-10.2) mg/dL Magnesium (1.6-2.3) mg/dL Total Bilirubin (0.2-1.3) mg/dL AST (14-36) IU/L ALT (<35) IU/L Alkaline Phosphatase (38-126) U/L Total Creatine Kinase (30-135) U/L CK-MB (CK-2) CK-MB (CK-2) Rel Index Troponin I (0.01-0.034) ng/mL NT-Pro-B Natriuret Pep (<125) pg/mL Total Protein (6.3-8.2) g/dL Albumin (3.5-5.0) g/dL Globulin (1.7-4.1) g/dL Albumin/Globulin Ratio (1.0-2.8) Procalcitonin (<0.5) ng/mL SARS-CoV-2 (PCR) Negative (Negative) Influenza A (RT-PCR) Flu a negative (NEGATIVE) Influenza B (RT-PCR) Flu b negative (NEGATIVE) RSV (PCR) Negative (Negative) Imaging Data Chest x-ray: Radiologist's Impression: Ginger Pedro??66??F??1955 ? Allergy/Adv: ciprofloxacin, Penicillins (More??) Close Chest CTA 08/27/21 Chest X-Ray (Signed) Elma Clayton - 08/27/21 Telemetry Strips 05/10/21 Telemetry Strips 10/19/20 Radiology - Historical 07/30/17 Radiology - Historical 07/30/17 Radiology - Historical 07/30/17 Radiology - Historical 07/09/17 Radiology - Historical 07/08/17 Radiology - Historical 07/08/17 Launch?[address] [address] XRay Report Signed Patient: Ginger Pedro MR#: [id number] : 1955 Acct:[id number] Age/Sex: 66 / F Date of Service: 08/27/21 Loc: ED Accession Number: [id number] ?? Procedure: XR chest 1V Ordering Provider: Kirstin Castañeda D.O. PROCEDURE:? XR CHEST 1V ? INDICATIONS:? short of breath ? TECHNIQUE:? One view of the chest was acquired.? ? COMPARISON:[facility], , CHEST 1 VIEW, 07/30/2017, 16:25. ? FINDINGS:? ? Surgical changes and devices:? Bilateral breast implants. ? Lungs and pleura:? Lungs are clear.? No pleural effusions or pneumothorax.? ? Mediastinum:? Mediastinal contours appear normal.? Heart size is normal.? ? Bones and chest wall:? No suspicious bony lesions.? Overlying soft tissues appear unremarkable.? ? IMPRESSION:? No acute cardiopulmonary disease process. ? ? Dictated by: Elma Clayton MD, PhD on 08/27/2021 at 7:36 ? ? Approved by: Elma Clayton MD, PhD on 08/27/2021 at 7:36? CTA chest: Radiologist's Impression: Ginger Pedro??66??F??1955 ? Allergy/Adv: ciprofloxacin, Penicillins (More??) Close Chest CTA (Signed) Hue Garber - 08/27/21 Chest X-Ray (Signed) Elma Clayton - 08/27/21 Telemetry Strips 05/10/21 Telemetry Strips 10/19/20 Radiology - Historical 07/30/17 Radiology - Historical 07/30/17 Radiology - Historical 07/30/17 Radiology - Historical 07/09/17 Radiology - Historical 07/08/17 Radiology - Historical 07/08/17 Launch?[place] [address] CT Scan Report Signed Patient: Ginger Pedro MR#: [id number] : 1955 Acct:[id number] Age/Sex: 66 / F Date of Service: 08/27/21 Loc: ED Accession Number: [id number] ?? Procedure: CT angio chest PE protocol Ordering Provider: Mank,Meseret C D.O. PROCEDURE:? CT ANGIO CHEST PE PROTOCOL ? INDICATIONS:? cough, sob ? TECHNIQUE:? After the administration of intravenous contrast, 2 mm thick sections acquired from the pulmonary apices to the posterior costophrenic angles.? 3-dimensional maximum intensity projection (MIP) coronal and sagittal reformats were then acquired through the thorax.? For radiation dose reduction, the following was used:? automated exposure control, adjustment of mA and/or kV according to patient size.? ? COMPARISON:? CT, ABDOMEN/PELVIS WITH CONTRAST, 07/30/2017, 16:35.? US, US PELVIC COMPLETE, 06/16/2018, 16:04. ? FINDINGS:? Image quality:? Excellent.? ? Pulmonary arteries:? Pulmonary arteries are normal in size, and demonstrate no intraluminal filling defects to suggest central pulmonary embolism.? ? Lungs and pleura:? Lungs are clear.? No pleural effusions or pneumothorax.? Central and peripheral airways are patent.? Mild thickening of the segmental and subsegmental bronchi of the mid and lower lungs bilaterally.? Mild patchy reticulonodular and ground- glass density within the bilateral lung bases. ? Mediastinum:? Heart size is normal, without pericardial effusion.? No mediastinal or hilar adenopathy.? Thoracic aorta is normal in caliber and enhancement.? Esophagus is normal in caliber.? Large hiatal hernia.? ? Bones and chest wall:? Peripherally calcified breast implants are present.? No suspicious bony lesions.? Ribs and thoracic spine appear intact throughout.? Thyroid gland is within normal limits.? No axillary or supraclavicular adenopathy.? ? Abdomen:? Visualized portions of the upper abdomen demonstrate moderate gallbladder distension, as well as a 37 mm left adrenal nodule which demonstrates Hounsfield units of -20. ? IMPRESSION:? 1. No pulmonary embolus. 2. Hiatal hernia. 3. Mild bronchopneumonia. 4. No change in left adrenal adenomyelolipoma.? ? ? Dictated by: Hue Garber M.D. on 08/27/2021 at 8:28 ? ? Approved by: Hue Garber M.D. on 08/27/2021 at 8:34?? ECG Data Attestation: I personally reviewed and interpreted this ECG as follows: Interpretation: Sinus tachycardia, right bundle-branch block. Rate of 1 0 9p are 140 QRS of 132 and QTC 514. MDM Narrative Medical decision making narrative: This is a 66-year-old female signed out to myself with complaint of shortness of breath. Patient came in with tachycardia, EKG shows right bundle branch block which appears stable to prior EKGs from 04/18/2021 and 07/08/2017. Patient's CBC show slight increase in hemoglobin, BNP is 183 with a cutoff of 125, negative troponin, and minor lab abnormalities with a positive procalcitonin. COVID swab was negative. Patient was reportedly wheezy on exam and seem to respond to DuoNeb, she had fluids, Zofran and Solu-Medrol in the department. Patient did have 3 episodes were her O2 sat dropped while lying flat she could cough were clear and seem to increase it but did appear to have an appropriate cleft. Because she had some persistent tachycardia initially which did respond to fluids CT angio was obtained and shows no pulmonary embolus but does show segmental and subsegmental bronchi lower lungs bilaterally with some patchy density changes consistent with bronchopneumonia. She has a hiatal hernia as well as a left adrenal add no myelolipoma. Patient has not required persistent oxygen. Reviewed her findings plan to give a dose of Rocephin in the department , ambulatory pulse oximetry if patient is able to maintain O2 sats DC home with oral antibiotics, prednisone and albuterol inhaler. Patient continued to have intermittent dips in her oxygen level to 83%, they are not persistent but they do occur so discussed with Dr. Ashraf from her primary care service who accepts for observation, IV antibiotics with a 4 plaques COVID pending. Discharge Plan Departure Patient Disposition: Admitted as Observation Clinical Impression: Bronchopneumonia Admit Date/Time: 08/27/21 09:50 Admit Provider: Jong Ashraf
--- NOTE | 2021-08-27 06:12 | DI.RAD.S_ITS ---
PROCEDURE: XR CHEST 1V INDICATIONS: short of breath TECHNIQUE: One view of the chest was acquired. COMPARISON: [facility], , CHEST 1 VIEW, 07/30/2017, 16:25. FINDINGS: Surgical changes and devices: Bilateral breast implants. Lungs and pleura: Lungs are clear. No pleural effusions or pneumothorax. Mediastinum: Mediastinal contours appear normal. Heart size is normal. Bones and chest wall: No suspicious bony lesions. Overlying soft tissues appear unremarkable. IMPRESSION: No acute cardiopulmonary disease process. Dictated by: Elma Clayton MD, PhD on 08/27/2021 at 7:36 Approved by: Elma Clayton MD, PhD on 08/27/2021 at 7:36
[2021-08-27 06:19] LABS: COVID19 -Nasal RAPID Negative (Negative)
[2021-08-27 06:22] LABS: Add Manual Diff / Slide Review NO; Basophils Absolute Auto 100 /uL (0-100); Basophils Percent Auto 1.1 % (0-2); Eosinophils Absolute Auto 200 /uL (0-450); Hematocrit 47.5 % (36-46); Hemoglobin 16.6 g/dL (12.0-16.0); Lymphocytes Absolute Auto 1500 /uL (1100-4500); Lymphocytes Percent Auto 29.3 % (25-40); Mean Corpuscular Volume 91.5 fL (80-100); Monocytes Absolute Auto 800 /uL (0-900); Monocytes Percent Auto 15.1 % (3-14); Neutrophils Absolute Auto 2600 /uL (1500-7000); Neutrophils Percent Auto 50.5 % (50-75); Platelet Count 242 X10^3/uL (150-400); Red Blood Cell Count 5.19 X10^6/uL (4.0-5.2); Red Cell Distribution Width 12.6 % (11.6-14.8); White Blood Cell Count 5.2 X10^3/uL (4.5-11.0)
[2021-08-27 06:23] LABS: Creatine Kinase 60 U/L (30-135); Lactate (Lactic Acid) 1.7 mmol/L (0.7-2.1); Magnesium 1.4 mg/dL (1.6-2.3)
[2021-08-27 06:24] LABS: Alanine Aminotransferase 25 IU/L (<35); Albumin 5.2 g/dL (3.5-5.0); Albumin Globulin Ratio 1.4 (1.0-2.8); Alkaline Phosphatase 88 U/L (38-126); Aspartate Aminotransferase 57 IU/L (14-36); BUN Creatinine Ratio 10.7 (6-22); Bilirubin Total 0.8 mg/dL (0.2-1.3); Blood Urea Nitrogen 8 mg/dL (7-17); Calcium 9.5 mg/dL (8.4-10.2); Carbon Dioxide 23 mmol/L (22-32); Chloride 97 mmol/L (98-107); Estimated Glomerular Filt Rate > 60.0 mL/min (>60); Globulin 3.7 g/dL (1.7-4.1); Glucose 136 mg/dL (80-110); HEMOLYSIS 22 (0-50); Potassium 3.5 mmol/L (3.4-5.1); Sodium 136 mmol/L (137-145); Total Protein 8.9 g/dL (6.3-8.2)
[2021-08-27 06:36] LABS: NT-proBNP (BNP-Adult 18+) 183 pg/mL (<125); Troponin I < 0.012 ng/mL (0.01-0.034)
[2021-08-27] MEDS: ALBUTEROL/IPRATROPIUM 3 ML AMPUL INH (06:38)
[2021-08-27 07:03] LABS: Procalcitonin < 0.03 ng/mL (<0.5)
[2021-08-27] MEDS: SODIUM CHLORIDE 0.9% 1,000 ML 1000 ML IV (07:25)
[2021-08-27] MEDS: ONDANSETRON 4 MG/2 ML INJ IV ×2 (07:25→18:11)
[2021-08-27] MEDS: methylPREDNISolone 125 MG/2 ML VIAL IV (07:25)
--- NOTE | 2021-08-27 07:37 | PC.NURSE ---
Patient was nauseated and tachycardic; gave meds as ordered. She notified RN that when she is ready for discharge that she will need to go home via [facility].
--- NOTE | 2021-08-27 08:21 | DI.CT.S_ITS ---
PROCEDURE: CT ANGIO CHEST PE PROTOCOL INDICATIONS: cough, sob TECHNIQUE: After the administration of intravenous contrast, 2 mm thick sections acquired from the pulmonary apices to the posterior costophrenic angles. 3-dimensional maximum intensity projection (MIP) coronal and sagittal reformats were then acquired through the thorax. For radiation dose reduction, the following was used: automated exposure control, adjustment of mA and/or kV according to patient size. COMPARISON: CT, ABDOMEN/PELVIS WITH CONTRAST, 07/30/2017, 16:35. US, US PELVIC COMPLETE, 06/16/2018, 16:04. FINDINGS: Image quality: Excellent. Pulmonary arteries: Pulmonary arteries are normal in size, and demonstrate no intraluminal filling defects to suggest central pulmonary embolism. Lungs and pleura: Lungs are clear. No pleural effusions or pneumothorax. Central and peripheral airways are patent. Mild thickening of the segmental and subsegmental bronchi of the mid and lower lungs bilaterally. Mild patchy reticulonodular and ground-glass density within the bilateral lung bases. Mediastinum: Heart size is normal, without pericardial effusion. No mediastinal or hilar adenopathy. Thoracic aorta is normal in caliber and enhancement. Esophagus is normal in caliber. Large hiatal hernia. Bones and chest wall: Peripherally calcified breast implants are present. No suspicious bony lesions. Ribs and thoracic spine appear intact throughout. Thyroid gland is within normal limits. No axillary or supraclavicular adenopathy. Abdomen: Visualized portions of the upper abdomen demonstrate moderate gallbladder distension, as well as a 37 mm left adrenal nodule which demonstrates Hounsfield units of -20. IMPRESSION: 1. No pulmonary embolus. 2. Hiatal hernia. 3. Mild bronchopneumonia. 4. No change in left adrenal adenomyelolipoma. Dictated by: Hue Garber M.D. on 08/27/2021 at 8:28 Approved by: Hue Garber M.D. on 08/27/2021 at 8:34
[2021-08-27] MEDS: cefTRIAXone 2,000 MG in SODIUM CHLORIDE 0.9% 100 ML 200 ML IV (09:13)
--- NOTE | 2021-08-27 09:32 | PC.NURSE ---
Patient desaturates to low 80s on RA, especially when relaxing. When asked to cough, her O2 Sats increase to mid 90s.
--- NOTE | 2021-08-27 09:59 | PM.HP.1 ---
History of Present Illness History of Present Illness Date Patient Seen: 08/27/21 Time Patient Seen: 09:59 Chief complaint: cough, sore throat, sob Narrative: 66-year-old female admitted by the [facility] Emergency Department because of shortness of breath and coughing Patient reports feeling ill for week or so. She was traveling for work and began to cough. Had low-grade fever of about 100. She did a rapid COVID test that was normal. She persisted with coughing coughing more coughing and became slowly short of breath. Shortness of breath was particularly worse over the 24 hours or so prior to admission. She had difficulty lying flat. Really denies any fever chills or other significant symptoms recently. Feels somewhat tired but did just returned from traveling ER evaluation was fairly unremarkable chest x-ray and lab work unremarkable she was modestly hypoxic with some episodic more dramatic hypoxia. Chest CT showed evidence of pneumonia in a pattern most consistent with bacterial infection rather than viral/COVID. Findings were in the bases bilaterally She persisted with intermittent hypoxia and overall weakness and was admitted for parental therapy oxygen. She also somewhat wheezy upon presentation seem to respond to albuterol nebulizer. Patient History Medical History Adrenal nodule Alcoholism Anxiety state, unspecified (11/18/02) Cervicalgia (08/08/04) Degeneration of intervertebral disc, site unspecified (01/06/03) Depression (11/18/02) Fibromyalgia (07/27/04) Hepatitis C, chronic (02/23/03) Hypertension Lumbosacral spondylosis (02/05/02) Menopause present (02/06/15) RBBB (right bundle branch block) Spondylosis of unspecified site without mention of myelopathy (03/08/02) Surgical History History of breast augmentation (~1983) History of foot surgery History of foot surgery History of spinal fusion (1999) History of third molar tooth extraction Status post laminectomy Status post laparoscopic supracervical hysterectomy Status post wrist surgery Family & Social History Family History Father Brain cancer Grandfather Internal bleeding Grandmother Stroke Mother COPD (chronic obstructive pulmonary disease) Grandfather Heart attack Grandmother No problems noted. Social History: household members spouse Safety & Behavioral: Feels Safe in Current Yes Environment Tobacco & Substance use: Smoking Status Former smoker alcohol intake former alcohol intake frequency 0-2 drinks per day Substance Use Type does not use Meds Home Medications and Allergies Home Medications Medication Instructions Recorded Confirmed Type Suboxone 12 mg PO DAILY 07/26/19 06/04/21 History amlodipine 2.5 mg-benazepril 10 mg 1 cap PO DAILY #90 cap 07/23/21 Rx capsule azithromycin 250 mg tablet 250 mg PO DAILY 5 Days #5 tab 08/28/21 Rx Allergies Allergy/AdvReac Type Severity Reaction Status Date / Time ciprofloxacin [CIPROFLOXACIN] Allergy Unknown Verified 06/04/21 15:47 Penicillins [PENICILLINS] Allergy Unknown Verified 06/04/21 15:47 Review of Systems Review of Systems ROS: Yes All systems reviewed with the patient and are negative except as otherwise documented Exam Vital Signs (past 8 hours): - 08/27/21 05:58 08/27/21 05:59 08/27/21 06:00 Temperature 98.2 F Pulse Rate 119 H 130 H 129 H Respiratory Rate 18 24 24 Blood Pressure 192/116 H 183/109 H 183/109 H Pulse Oximetry 97 98 96 08/27/21 06:30 08/27/21 06:38 08/27/21 07:00 Temperature Pulse Rate 103 H 106 H Respiratory Rate 16 13 Blood Pressure Pulse Oximetry 93 98 94 08/27/21 07:30 08/27/21 07:36 08/27/21 07:57 Temperature Pulse Rate 127 H 102 H Respiratory Rate 21 16 Blood Pressure 171/94 H Pulse Oximetry 96 96 98 08/27/21 08:00 08/27/21 08:22 08/27/21 08:30 Temperature Pulse Rate 91 H 97 H 95 H Respiratory Rate 10 L 14 10 L Blood Pressure 183/91 H 168/84 H Pulse Oximetry 95 98 94 08/27/21 09:00 08/27/21 09:30 08/27/21 09:32 Temperature Pulse Rate 94 H 126 H Respiratory Rate 17 26 H Blood Pressure 161/85 H Pulse Oximetry 94 83 L 93 Oxygen Delivery Method Room Air Oxygen Flow Rate 2 Narrative Exam Narrative: Middle-aged female in no obvious distress lying in hospital bed HEENT-normocephalic atraumatic PERRLA EOMs intact Neck-no lymphadenopathy no bruits Lungs-crackles at the left base only, somewhat diminished breath sounds throughout otherwise Heart-regular rate and rhythm no murmur Abdomen-positive bowel tones soft nontender nondistended no hepatosplenomegaly no mass palpable Extremities-no cyanosis clubbing or edema Neuro-alert orient x3 no focal defects gait not tested Objective Labs Result Diagrams: 08/27/21 06:00 08/27/21 06:00 Labs: Laboratory Results - last 24 hr 08/27/21 08/27/21 08/27/21 05:55 06:00 06:00 WBC 5.2 RBC 5.19 Hgb 16.6 H Hct 47.5 H MCV 91.5 MCH 32.0 MCHC 35.0 RDW 12.6 Plt Count 242 Neut % (Auto) 50.5 Lymph % (Auto) 29.3 Pepin % (Auto) 15.1 H Eos % (Auto) 4.0 Baso % (Auto) 1.1 Neut # (Auto) 2600 Lymph # (Auto) 1500 Pepin # (Auto) 800 Eos # (Auto) 200 Baso # (Auto) 100 Sodium Potassium Chloride Carbon Dioxide BUN Creatinine Estimated GFR BUN/Creatinine Ratio Glucose Lactate Calcium Magnesium 1.4 L Total Bilirubin AST ALT Alkaline Phosphatase Total Creatine Kinase 60 CK-MB (CK-2) TNP CK-MB (CK-2) Rel Index TNP Troponin I < 0.012 NT-Pro-B Natriuret Pep 183 H Total Protein Albumin Globulin Albumin/Globulin Ratio Procalcitonin SARS-CoV-2 (PCR) Negative 08/27/21 08/27/21 08/27/21 06:00 06:00 06:00 WBC RBC Hgb Hct MCV MCH MCHC RDW Plt Count Neut % (Auto) Lymph % (Auto) Pepin % (Auto) Eos % (Auto) Baso % (Auto) Neut # (Auto) Lymph # (Auto) Pepin # (Auto) Eos # (Auto) Baso # (Auto) Sodium 136 L Potassium 3.5 Chloride 97 L Carbon Dioxide 23 BUN 8 Creatinine 0.75 Estimated GFR > 60.0 BUN/Creatinine Ratio 10.7 Glucose 136 H Lactate 1.7 Calcium 9.5 Magnesium Total Bilirubin 0.8 AST 57 H ALT 25 Alkaline Phosphatase 88 Total Creatine Kinase CK-MB (CK-2) CK-MB (CK-2) Rel Index Troponin I NT-Pro-B Natriuret Pep Total Protein 8.9 H Albumin 5.2 H Globulin 3.7 Albumin/Globulin Ratio 1.4 Procalcitonin < 0.03 SARS-CoV-2 (PCR) Assessment & Plan Assessment & Plan narrative: 1. Community-acquired pneumonia-patient with allergy to penicillins and ciprofloxacin but tolerate initial dose of ceftriaxone given in the ER. Continue with ceftriaxone and going to add azithromycin given the somewhat atypical nature as well to treat atypical organisms such as mycoplasma as etcetera with the azithromycin Will use albuterol as needed Use oxygen as needed as well 2. Hypertension-continue patient's usual medication 3. Code status-patient should be full code in event of a sudden cardiac or respiratory arrest and this is verified with her 4. VTE prophylaxis-Lovenox is appropriate and ordered Time Spent With Patient Critical Care time: I spent a total of [] minutes of critical care time on this patient's care today; this time is exclusive of procedural time.
[2021-08-27 10:27] LABS: Influenza A - CEPHEID Flu A NEGATIVE (NEGATIVE); Influenza B - CEPHEID Flu B NEGATIVE (NEGATIVE); Respiratory Syncytial Virus Negative (Negative)
[2021-08-27 10:37] LABS: COVID-19 CEPHEID PCR (VTM/NP) Negative (Negative)
[2021-08-27] MEDS: ACETAMINOPHEN 325 MG TABLET 650 MG PO ×2 (12:10→20:20)
[2021-08-27] MEDS: DEXTROSE 5%-0.9% NS 1,000 ML 60 ML IV (12:10)
[2021-08-27] MEDS: AZITHROMYCIN 500 MG in DEXTROSE 5% IN WATER 250 ML IV (12:10)
[2021-08-28] MEDS: ACETAMINOPHEN 325 MG TABLET 650 MG PO ×2 (01:50→07:25)
[2021-08-28 08:00] VITALS: O2SAT 95
--- NOTE | 2021-08-28 08:09 | PM.DS.1 ---
History of Present Illness History of Present Illness Date Patient Seen: 08/28/21 Time Patient Seen: 08:10 Chief complaint: cough, sore throat, sob Narrative: 66-year-old female admitted by the [facility] Emergency Department because of shortness of breath and coughing Patient reports feeling ill for week or so. She was traveling for work and began to cough. Had low-grade fever of about 100. She did a rapid COVID test that was normal. She persisted with coughing coughing more coughing and became slowly short of breath. Shortness of breath was particularly worse over the 24 hours or so prior to admission. She had difficulty lying flat. Really denies any fever chills or other significant symptoms recently. Feels somewhat tired but did just returned from traveling ER evaluation was fairly unremarkable chest x-ray and lab work unremarkable she was modestly hypoxic with some episodic more dramatic hypoxia. Chest CT showed evidence of pneumonia in a pattern most consistent with bacterial infection rather than viral/COVID. Findings were in the bases bilaterally She persisted with intermittent hypoxia and overall weakness and was admitted for parental therapy oxygen. She also somewhat wheezy upon presentation seem to respond to albuterol nebulizer. Discharge Providers Provider Date of admission: 08/27/21 09:50 Discharge Date: 08/28/21 Primary care physician: Jong Ashraf MD Consults: 08/27/21 06:11 Consult to Respiratory Therapy Evaluate & Treat Comment: Physician Instructions: Evaluate and treat Discharge provider: Jong Ashraf MD Summary Hospital Course Discharge Diagnosis: 1. Bronchopneumonia, community-acquired, organism not identified 2. Hypoxia, resolved 3. Hypertension 4. Chronic neck pain 5. Depression 6. Chronic hepatitis-C Hospital Course: Patient was admitted to the hospital floor after presenting as above. She slowly but surely improved. She had increasing cough that was modestly productive of sputum. She had some chest discomfort while breathing and coughing. [place] generally ill but oxygen levels remained stable without oxygen supplementation. She was able to be up and around on her own she had a bit of decreased stamina Overall felt to be slightly improved at time of discharge. Status at Discharge Cognitive/behavioral status at discharge: oriented Functional status at discharge: independent ambulation Overall status at discharge: patient is progressing back to baseline Exam Vital Signs (past 8 hours): Oxygen Delivery Method Room Air Oxygen Flow Rate 0 Objective Labs Result Diagrams: 08/27/21 06:00 08/27/21 06:00 Labs: Laboratory Results - last 24 hr 08/27/21 09:28 SARS-CoV-2 (PCR) Negative Influenza A (RT-PCR) Flu a negative Influenza B (RT-PCR) Flu b negative RSV (PCR) Negative [facility] Medical History Adrenal nodule Alcoholism Anxiety state, unspecified (11/18/02) Cervicalgia (08/08/04) Degeneration of intervertebral disc, site unspecified (01/06/03) Depression (11/18/02) Fibromyalgia (07/27/04) Hepatitis C, chronic (02/23/03) Hypertension Lumbosacral spondylosis (02/05/02) Menopause present (02/06/15) RBBB (right bundle branch block) Spondylosis of unspecified site without mention of myelopathy (03/08/02) Surgical History History of breast augmentation (~1983) History of foot surgery History of foot surgery History of spinal fusion (1999) History of third molar tooth extraction Status post laminectomy Status post laparoscopic supracervical hysterectomy Status post wrist surgery Family History Father Brain cancer Grandfather Internal bleeding Grandmother Stroke Mother COPD (chronic obstructive pulmonary disease) Grandfather Heart attack Grandmother No problems noted. Social History household members: spouse Smoking Status: Former smoker alcohol intake: former Discharge Assessment & Plan Assessment and Plan Plan of Treatment: Patient to be discharged home to complete a course of oral antibiotic therapy for community-acquired pneumonia She should continue all of her other usual medications Patient be seen in the outpatient clinic by Dr. Ashraf in approximately 2 weeks time Discharge Plan Discharge Plan Patient Disposition: Home Discharge orders & Medications Prescriptions: Continued amlodipine-benazepril 2.5-10 mg capsule 1 cap PO DAILY Qty: 90 3RF Suboxone 12 mg PO DAILY 0RF Rx Instructions: 8MG TABLETS. PATIENT DOES 1.5 TABS DAILY. This is prescribed by Dr. Beavers Discontinued triamcinolone acetonide [Kenalog] 40 mg/mL suspension 40 mg intrabursal ONCE Qty: 1 0RF No Action azithromycin 250 mg tablet 250 mg PO DAILY 5 Days Qty: 5 0RF Follow up/Referrals: Jong Ashraf MD [Primary Care Provider] - 2 Weeks Discharge Health Status Multidrug resistant organism: No MDRO Diet/Activity/Treatments Diet: Diet as Tolerated Visit Report/Discharge Packet Instructions: DI for Pneumonia -- Adult Discharge Data Primary Care Provider: Jong Ashraf Attending Provider: Jong Ashraf
[2021-08-28 08:15] VITALS: BP 161/87
[2021-08-28] MEDS: cefTRIAXone 1,000 MG in SODIUM CHLORIDE 0.9% 100 ML 200 ML IV (08:15)
[2021-08-28] MEDS: lisinopriL 10 MG TABLET PO (08:15)
[2021-08-28] MEDS: ENOXAPARIN 40 MG/0.4 ML SYRINGE SUBCUT (08:16)
[2021-08-28] MEDS: AMLODIPINE 5 MG TABLET 2.5 MG PO (08:19)
[2021-08-28 08:35] VITALS: BP 161/87; PULSE 85; RESP 16; TEMP 36.7; O2SAT 96
[2021-08-28 09:50] VITALS: O2SAT 96
--- NOTE | 2021-08-28 10:36 | PC.NURSE ---
Pt is dressed and waiting for discharge home with Spouse. IV has been removed. O2 sat 95% on RA. Went over d/c instructions with Pt -discussed d/c meds, time of last dose, reviewed stroke education, and follow up appointment. Pt home meds (suboxone returned to Pt by Pharm. Carnes. Pt states she was told she would discharge with 5 days of Azithromycin PO but prescription was not sent. Currently on hold for Dr. Ashraf to ascertain if he wishes to order ABX for Pt.
--- NOTE | 2021-08-28 11:10 | PC.NURSE ---
Spoke with Dr. Ashraf and script was sent to [facility]. Called Pt and notified her that she would have a abx prescription to [facility]. Reminded Pt to drink plenty of fluids to prevent constipation or dehydration and to consider yogurt or probiotics if the abx cause diarrhea. Pt out via w/c by RN to POV with Spouse and all belongings.
== END 2021-08-28 11:13 | disposition home or self-care (01) ==
LOC: ED 08:33 → AC 09:51
PROVIDERS: Emergency Medicine; Admitting Provider Internal Medicine; Emergency Provider Emergency Medicine; Family Provider Orthopaedic Surgery; PCP Internal Medicine; Referring Provider Emergency Medicine; Visit Provider Internal Medicine
DX: J18.0 Bronchopneumonia, unspecified organism (principal); F41.9 Anxiety disorder, unspecified; F10.20 Alcohol dependence, uncomplicated; B18.2 Chronic viral hepatitis C; I10 Essential (primary) hypertension; G89.29 Other chronic pain; M54.2 Cervicalgia; F32.9 Major depressive disorder, single episode, unspecified; Z20.822 Contact with and (suspected) exposure to COVID-19; I45.10 Unspecified right bundle-branch block
CPT/HCPCS: 0241U; 36415; 71045; 71275; 80053; 82550; 83605; 83735; 83880; 84145; 84484; 85025; 87635; 93005; 93010; 94640; 94760; 96365; 96366; 96367; 96372; 96375; 96376; 99217; 99219; 99284; 99285; C9803; G0378; J0696; J1650; J2405; J2930